=== PATIENT | female | born 1945 | race African-American/Black ===

== ENCOUNTER 2024-07-16 07:36 | Day surgery (SDC) | payer OTHER, MEDICARE ==
[2024-07-15 13:14] VITALS: BMI 29.0
[2024-07-16 08:10] VITALS: RESP 18
[2024-07-16 10:30] VITALS: BP 122/76; PULSE 96; TEMP 98.4
== END 2024-07-16 09:55 | disposition home or self-care (01) ==
LOC: FASU-ENDO 07:36
PROVIDERS: ATTEND Internal Medicine Gastroenterology
PROC: 0DB78ZX Excision of Stomach, Pylorus, Via Natural or Artificial Opening Endoscopic, Diagnostic (ICD-10-PCS; 2024-07-16)
PROC: 0DB48ZX Excision of Esophagogastric Junction, Via Natural or Artificial Opening Endoscopic, Diagnostic (ICD-10-PCS; 2024-07-16)
PROC: 0DB98ZX Excision of Duodenum, Via Natural or Artificial Opening Endoscopic, Diagnostic (ICD-10-PCS; principal; 2024-07-16 09:10)
DX: K25.3 Acute gastric ulcer without hemorrhage or perforation (principal); K29.50 Unspecified chronic gastritis without bleeding; K21.00 Gastro-esophageal reflux disease with esophagitis, without bleeding; K44.9 Diaphragmatic hernia without obstruction or gangrene
CPT/HCPCS: 88305-TC; 88342-TC